=== PATIENT | female | born 1955 | race Caucasian/White ===

== ENCOUNTER → 2017-07-29 | Outpatient (CLI) | payer SELFPAY ==
[~2017-07-29] MED LIST: Roxicodone5 MG PO; Zofran Odt4 MG SL
== END | disposition home or self-care (01) ==
LOC: LAB 17:29
DX: L03.317 Cellulitis of buttock (principal)
CPT/HCPCS: 87070; 87077; 87147; 87186; 87205

== ENCOUNTER 2019-01-01 11:45 | Day surgery (SDC) | payer OTHER ==
[~2019-01-01] VITALS: Ht 160 cm; Wt 81.4 kg
[~2019-01-01 11:45] MED LIST changes: +METCAR500 PO; +METO50ER PO; +Prilosec Otc20 MG PO; +TRAM50 PO
== END 2019-01-01 14:00 | disposition home or self-care (01) ==
LOC: ORSCSDS 11:45
PROVIDERS: Internal Medicine Gastroenterology
PROC: 0DB58ZX Excision of Esophagus, Via Natural or Artificial Opening Endoscopic, Diagnostic (ICD-10-PCS; principal; 2019-01-01 13:00)
PROC: 0D747ZZ Dilation of Esophagogastric Junction, Via Natural or Artificial Opening (ICD-10-PCS; principal; 2019-01-01 13:00)
PROC: 0DB68ZX Excision of Stomach, Via Natural or Artificial Opening Endoscopic, Diagnostic (ICD-10-PCS; principal; 2019-01-01 13:00)
DX: R13.10 Dysphagia, unspecified (principal); K21.9 Gastro-esophageal reflux disease without esophagitis; K29.70 Gastritis, unspecified, without bleeding; I10 Essential (primary) hypertension; E66.9 Obesity, unspecified; Z68.32 Body mass index [BMI] 32.0-32.9, adult; Z79.899 Other long term (current) drug therapy
CPT/HCPCS: 88305; 88342; J2704; J7120

== ENCOUNTER → 2019-11-03 | Outpatient (CLI) | payer OTHER | END | disposition home or self-care (01) | LOC: LAB SHORT 19:05 → LAB EV 19:05 | DX: N39.0 Urinary tract infection, site not specified (principal) | CPT/HCPCS: 87077; 87086; 87147; 87186 ==

== ENCOUNTER → 2022-06-13 | Outpatient (CLI) | payer OTHER | END | disposition home or self-care (01) | LOC: LAB SHORT 15:17 | DX: R05.3 Chronic cough (principal) | CPT/HCPCS: 87070; 87205 ==

== ENCOUNTER 2023-11-29 06:37 | Inpatient (IN) | payer OTHER ==
[~2023-11-29] VITALS: Ht 160 cm; Wt 77.1 kg
[~2023-11-29 06:37] MED LIST changes: +METPRE4DP PO
[2023-11-29] MEDS ORDERED: ONDA4ODT MM (06:52)
[2023-11-29] MEDS ORDERED: HYDROmorphone HCl/Pf 1MG SYR IV ONE (07:45)
[2023-11-29] MEDS ORDERED: Ondansetron HCl 2 MG / ML 2ML Vial IV ONE (07:45)
[2023-11-29 08:06] LABS: EOSINOPHILS PERCENT AUTO 0 % (0-6); Hematocrit 39.7 % (33.0-51.0); Hemoglobin 13.1 g/dL (11.5-16.0); IMMATURE GRAN ABSOLUTE AUTO 1.18 K/mm3 (0.00-0.10); IMMATURE GRAN PERCENT AUTO 3 % (0-1); LYMPHOCYTES ABSOLUTE AUTO 1.19 K/mm3 (0.84-5.20); LYMPHOCYTES PERCENT AUTO 3 % (21-46); MONOCYTES ABSOLUTE AUTO 1.83 K/mm3 (0.16-1.47); MONOCYTES PERCENT AUTO 5 % (4-13); Mean Corpuscular HGB 28.4 pg (26.0-34.0); Mean Corpuscular Volume 86 fL (80-100); Mean Platelet Volume 10.2 fL (9.1-12.4); NEUTROPHILS ABSOLUTE AUTO 33.58 K/mm3 (1.96-9.15); NEUTROPHILS PERCENT AUTO 89 % (41-73); Platelet Count 373 K/mm3 (150-400); RDW Coefficient Variation 13.9 % (11.7-14.2); RDW Standard Deviation 44.3 fL (35.1-46.3); Red Blood Cell Count 4.61 M/mm3 (3.80-5.20); White Blood Cell Count 37.81 K/mm3 (4.00-11.30)
[2023-11-29 08:26] LABS: BASOPHILS ABSOLUTE AUTO 0.03 K/mm3 (0.00-0.23); BASOPHILS PERCENT AUTO 0 % (0-2)
[2023-11-29 08:27] LABS: Albumin/Globulin Ratio 0.3 (0.8-1.8); Bun/Creatinine Ratio 26.3 (12.0-20.0); Calcium, Blood 9.2 mg/dL (8.5-10.1); Creatinine, Blood 0.88 mg/dL (0.40-1.00); Globulin, Blood 5.9 g/dL (2.2-4.0); Potassium, Blood 3.8 mmol/L (3.5-5.5); Total Protein, Blood 7.9 g/dL (6.4-8.2)
[2023-11-29 08:42] LABS: Influenza A, PCR NEGATIVE (NEGATIVE); Influenza B, PCR NEGATIVE (NEGATIVE); Resp Syncytial Virus, PCR NEGATIVE (NEGATIVE); SARS-Cov-2 (COVID-19) PCR, MMC NEGATIVE (NEGATIVE)
[2023-11-29] MEDS ORDERED: CefTRIAXone Sodium 1,000 MG in NS 50 ML IV ONE (09:15)
[2023-11-29] MEDS ORDERED: Ondansetron HCl 2 MG / ML 2ML Vial IV PRN (10:00)
[2023-11-29] MEDS ORDERED: Lactated Ringer's 1,000 ML IV SCH (10:05)
[2023-11-29] MEDS ORDERED: HYDROmorphone HCl/Pf 1MG SYR IV PRN (10:05)
[2023-11-29] MEDS ORDERED: OxyCODONE HCL 5 MG TAB PO PRN (10:05)
[2023-11-29] MEDS ORDERED: Azithromycin 500 MG in NS 250 ML IV SCH (10:10)
[2023-11-29] MEDS ORDERED: FLUT.05NI (11:50)
[2023-11-29] MEDS ORDERED: Benzonatate 100 MG Cap PO PRN (14:25)
[2023-11-29] MEDS ORDERED: GuaiFENesin 600 MG TabCR PO SCH (14:25)
[2023-11-29 14:37] VITALS: BP 126/80
--- NOTE | 2023-11-29 16:34 | NUR ---
TRANSFER REPORT CALLED TO NILSA REYES AT [facility] AT THIS TIME, ACCEPTING PHYSICIAN IS . CHARGE NURSE ADAN MADE AWARE.
[2023-11-29 16:41] VITALS: BP 126/80
--- NOTE | 2023-11-29 18:46 | NUR ---
PATIENT IN ALOT OF PAIN, RIGHT SIDED PAIN R/T FLUID BUILD UP AND NEED FOR THORACENTESIS, DESPITE DILUDID OR OXYCODONE PAIN MEDICAITON INEFFECTIVE. BEING TRANSPORTED TO [facility] AT THIS TIEM TO GET PROCUDRE PERFORMED THERE. TRANSPORT CURRENTLY AT BEDSIDE AWAITING PACKET FROM EQUIPMENT SCHEDULER FOR TRANSPORT.
[2023-11-29] MEDS ORDERED: Lactobacil 2-S.Thermo-Bifido 1 1 Cap PO SCH (21:00)
[2023-11-29] MEDS ORDERED: Docusate Sodium/Senna 1 Tab PO SCH (21:00)
[2023-11-30] MEDS ORDERED: CefTRIAXone Sodium 1,000 MG in NS 100 ML IV SCH (09:00)
[2023-11-30] MEDS ORDERED: Cholecalciferol 1000 Unit Tablet (=25MCG) PO SCH (09:00)
== END 2023-11-29 19:45 | disposition short-term general hospital (02) | DRG 871 ==
LOC: ER 06:37 → MEDS 09:59
PROVIDERS: Emergency Medicine; ADMIT Internal Medicine
DX: A41.9 Sepsis, unspecified organism (principal); J18.9 Pneumonia, unspecified organism; J91.8 Pleural effusion in other conditions classified elsewhere; G89.29 Other chronic pain; J84.10 Pulmonary fibrosis, unspecified; M54.2 Cervicalgia; Z90.49 Acquired absence of other specified parts of digestive tract; Z98.890 Other specified postprocedural states; Z98.51 Tubal ligation status; Z88.0 Allergy status to penicillin; Z88.8 Allergy status to other drugs, medicaments and biological substances; Z79.899 Other long term (current) drug therapy
CPT/HCPCS: 0241U; 36415; 71046; 71260; 80053; 83605; 83690; 84484; 85025; 93005; 93010; 96374-59; 96375-59; 99285-25; A9270; J0456; J0696; J1170; J2405; J7050; J7120; Q9967

== ENCOUNTER 2023-12-16 10:55 | Emergency (ER) | payer OTHER ==
[~2023-12-16] VITALS: Ht 160 cm; Wt 77.1 kg
[~2023-12-16 10:55] MED LIST changes: +FLUT.05NI; +ONDA4ODT MM
[2023-12-16] MEDS ORDERED: NS 1,000 ML IV SCH (11:15)
[2023-12-16 11:57] LABS: BASOPHILS ABSOLUTE AUTO 0.12 K/mm3 (0.00-0.23); BASOPHILS PERCENT AUTO 1 % (0-2); EOSINOPHILS ABSOLUTE AUTO 0.18 K/mm3 (0.00-0.68); EOSINOPHILS PERCENT AUTO 1 % (0-6); Hematocrit 37.3 % (33.0-51.0); Hemoglobin 12.1 g/dL (11.5-16.0); IMMATURE GRAN ABSOLUTE AUTO 0.07 K/mm3 (0.00-0.10); IMMATURE GRAN PERCENT AUTO 1 % (0-1); LYMPHOCYTES ABSOLUTE AUTO 1.62 K/mm3 (0.84-5.20); LYMPHOCYTES PERCENT AUTO 13 % (21-46); MONOCYTES ABSOLUTE AUTO 0.98 K/mm3 (0.16-1.47); MONOCYTES PERCENT AUTO 8 % (4-13); Mean Corpuscular HGB 27.9 pg (26.0-34.0); Mean Corpuscular HGB Conc 32.4 g/dL (31.5-36.5); Mean Corpuscular Volume 86 fL (80-100); Mean Platelet Volume 9.2 fL (9.1-12.4); NEUTROPHILS ABSOLUTE AUTO 9.81 K/mm3 (1.96-9.15); NEUTROPHILS PERCENT AUTO 77 % (41-73); Platelet Count 552 K/mm3 (150-400); RDW Coefficient Variation 14.9 % (11.7-14.2); RDW Standard Deviation 46.5 fL (35.1-46.3); Red Blood Cell Count 4.34 M/mm3 (3.80-5.20); White Blood Cell Count 12.78 K/mm3 (4.00-11.30)
[2023-12-16 12:19] LABS: Albumin, Blood 2.1 g/dL (3.4-5.0); Albumin/Globulin Ratio 0.3 (0.8-1.8); Bilirubin, Total 0.4 mg/dL (0.1-1.0); Bun/Creatinine Ratio 17.4 (12.0-20.0); Calcium, Blood 8.4 mg/dL (8.5-10.1); Creatinine, Blood 0.63 mg/dL (0.40-1.00); Globulin, Blood 7.5 g/dL (2.2-4.0); Potassium, Blood 3.9 mmol/L (3.5-5.5); Total Protein, Blood 9.6 g/dL (6.4-8.2)
[2023-12-16 14:02] LABS: Source, Urine Clean Catch
[2023-12-16 14:05] LABS: Appearance, Urine Clear (Clear); Bilirubin, Urine Neg (Neg); Blood, Urine Neg (Neg); Color, Urine Yellow (P-Yellow); Glucose Qualitative, Urine Neg (Neg); Ketones, Urine Neg (Neg); Leukocyte Esterase, Urine Neg (Neg); Nitrite, Urine Neg (Neg); Protein, Urine Neg (Neg); Specific Gravity, Urine 1.005 (1.003-1.022); Urobilinogen, Urine NORM (Normal)
[2023-12-16] MEDS ORDERED: HYDROmorphone HCl/Pf 1MG SYR IV ONE (14:15)
[2023-12-16 16:00] VITALS: BP 142/82
== END 2023-12-16 18:51 | disposition home or self-care (01) ==
LOC: ER 10:55
PROVIDERS: Emergency Medicine
DX: R53.1 Weakness (principal); Z88.0 Allergy status to penicillin; Z88.8 Allergy status to other drugs, medicaments and biological substances; Z79.899 Other long term (current) drug therapy
CPT/HCPCS: 71045; 80053; 81003; 83880; 84484; 85025; 93005; 93010; 96360; 97110; 97116; 97162; 99285-25; J7030

== ENCOUNTER → 2023-12-25 | Outpatient (CLI) | payer OTHER ==
[2023-12-25 15:31] LABS: BASOPHILS PERCENT AUTO 1 % (0-2); EOSINOPHILS ABSOLUTE AUTO 0.16 K/mm3 (0.00-0.68); EOSINOPHILS PERCENT AUTO 2 % (0-6); Hemoglobin 12.2 g/dL (11.5-16.0); IMMATURE GRAN ABSOLUTE AUTO 0.07 K/mm3 (0.00-0.10); IMMATURE GRAN PERCENT AUTO 1 % (0-1); LYMPHOCYTES ABSOLUTE AUTO 2.08 K/mm3 (0.84-5.20); LYMPHOCYTES PERCENT AUTO 20 % (21-46); MONOCYTES ABSOLUTE AUTO 0.63 K/mm3 (0.16-1.47); MONOCYTES PERCENT AUTO 6 % (4-13); Mean Corpuscular HGB 27.7 pg (26.0-34.0); Mean Corpuscular HGB Conc 32.1 g/dL (31.5-36.5); Mean Corpuscular Volume 86 fL (80-100); Mean Platelet Volume 9.3 fL (9.1-12.4); NEUTROPHILS ABSOLUTE AUTO 7.27 K/mm3 (1.96-9.15); NEUTROPHILS PERCENT AUTO 70 % (41-73); Platelet Count 359 K/mm3 (150-400); RDW Coefficient Variation 14.6 % (11.7-14.2); RDW Standard Deviation 45.5 fL (35.1-46.3); Red Blood Cell Count 4.41 M/mm3 (3.80-5.20); White Blood Cell Count 10.31 K/mm3 (4.00-11.30)
[2023-12-25 15:44] LABS: Albumin, Blood 2.2 g/dL (3.4-5.0); Albumin/Globulin Ratio 0.3 (0.8-1.8); Bilirubin, Total 0.3 mg/dL (0.1-1.0); Bun/Creatinine Ratio 11.1 (12.0-20.0); Calcium, Blood 8.8 mg/dL (8.5-10.1); Creatinine, Blood 0.9 mg/dL (0.40-1.00); Globulin, Blood 6.9 g/dL (2.2-4.0); Potassium, Blood 3.8 mmol/L (3.5-5.5); Total Protein, Blood 9.1 g/dL (6.4-8.2)
== END ==
LOC: LAB 15:26 → LAB SHORT 15:26
PROVIDERS: Physician Assistant
DX: R53.1 Weakness (principal)
CPT/HCPCS: 80053; 85025

== ENCOUNTER 2024-04-22 15:31 | Observation (INO) | payer OTHER ==
[~2024-04-22] VITALS: Ht 160 cm; Wt 74.5 kg
[~2024-04-22 15:31] MED LIST changes: -FLUT.05NI; -ONDA4ODT MM
[2024-04-22 16:10] LABS: BASOPHILS ABSOLUTE AUTO 0.06 K/mm3 (0.00-0.23); BASOPHILS PERCENT AUTO 1 % (0-2); EOSINOPHILS PERCENT AUTO 5 % (0-6); Hematocrit 46.9 % (33.0-51.0); Hemoglobin 15.4 g/dL (11.5-16.0); IMMATURE GRAN ABSOLUTE AUTO 0.01 K/mm3 (0.00-0.10); IMMATURE GRAN PERCENT AUTO 0 % (0-1); LYMPHOCYTES ABSOLUTE AUTO 2.38 K/mm3 (0.84-5.20); LYMPHOCYTES PERCENT AUTO 31 % (21-46); MONOCYTES ABSOLUTE AUTO 0.53 K/mm3 (0.16-1.47); MONOCYTES PERCENT AUTO 7 % (4-13); Mean Corpuscular HGB 28.4 pg (26.0-34.0); Mean Corpuscular HGB Conc 32.8 g/dL (31.5-36.5); Mean Corpuscular Volume 86 fL (80-100); Mean Platelet Volume 9.7 fL (9.1-12.4); NEUTROPHILS ABSOLUTE AUTO 4.28 K/mm3 (1.96-9.15); NEUTROPHILS PERCENT AUTO 56 % (41-73); Platelet Count 310 K/mm3 (150-400); RDW Coefficient Variation 14.5 % (11.7-14.2); RDW Standard Deviation 46.1 fL (35.1-46.3); Red Blood Cell Count 5.43 M/mm3 (3.80-5.20); White Blood Cell Count 7.66 K/mm3 (4.00-11.30)
[2024-04-22 16:54] LABS: Albumin, Blood 3.4 g/dL (3.4-5.0); Albumin/Globulin Ratio 0.7 (0.8-1.8); Bilirubin, Total 0.2 mg/dL (0.1-1.0); Bun/Creatinine Ratio 19.4 (12.0-20.0); Calcium, Blood 9.3 mg/dL (8.5-10.1); Creatinine, Blood 1.08 mg/dL (0.40-1.00); Globulin, Blood 4.9 g/dL (2.2-4.0); Potassium, Blood 3.9 mmol/L (3.5-5.5); Total Protein, Blood 8.3 g/dL (6.4-8.2)
[2024-04-22] MEDS ORDERED: Aspirin 325 MG Tab PO ONE ×2 (18:40→19:00)
[2024-04-22] MEDS ORDERED: FLU VACC TS2024-25(6MOS UP)/PF 45 MCG/0.5 ML SYRINGE IM ONE (18:45)
[2024-04-22] MEDS ORDERED: TraMADol HCl 50 MG Tab PO PRN (19:10)
[2024-04-22] MEDS ORDERED: ALBU90OI INH (21:00)
[2024-04-22 21:49] VITALS: BP 158/86
[2024-04-23 03:41] VITALS: BP 142/93
--- NOTE | 2024-04-23 05:44 | NUR ---
NOC SHIFT SUMMARY PT ADMITTED FROM ER. ONLY NEUROLOGICAL SYMPTOM SHE HAS HAD SINCE COMING TO THE UNIT IS NUMBNESS TO HER LIPS AND THE L SIDE OF HER FACE. DID AN NIHSS ON ARRIVAL AND PT SCORED A 1. NO OTHER ISSUES.
[2024-04-23 06:19] LABS: CHOL/HDL RATIO 3.4; Cholesterol 179 mg/dL (50-200); HDL Cholesterol 52 mg/dL (>39); LDL/HDL RATIO 1.9; Low Density Lipoprotein Chol 101 mg/dL (0-110); Triglycerides 129 mg/dL (30-160); Very Low Density Lipoprot Chol 25 mg/dL (6-32)
[2024-04-23 08:04] VITALS: BP 147/89
[2024-04-23] MEDS ORDERED: Atorvastatin 40 MG Tab PO SCH (09:00)
[2024-04-23] MEDS ORDERED: Enoxaparin 40 MG/0.4 ML SYR SC SCH (09:00)
[2024-04-23] MEDS ORDERED: Aspirin 81 MG TabEC PO SCH (09:00)
--- NOTE | 2024-04-23 10:28 | NUR ---
AM NOTE ASSUMED CARE OF PATIENT AT APPROX. 0715. BEDSIDE REPORT DONE. PATIENT IS A&OX4. PATIENT IS IND IN ROOM. ECHO COMPLETED AT APPROX. 1000. PATIENT TAKEN FOR MRI RIGHT AFTER THAT. PATIENT REPORTED LEFT MOUTH/LIP NUMBNESS, PATIENT HAD NOT BEEN FEELING THIS NUMBNESS UNTIL SHE REPORTED IT TO THIS RN. DOCTOR NOTIIFED. PATIENT IS EATING DRINKING WELL. PATIENT DOES NOT REPORT ANY DIFFICULTY WITH EATING OR DRINKING. BILAT UPPER EXTREMITIES EQUAL IN STRENGTH. BILAT LOWER EXTREMTIIES SLIGHTLY WEAK, BUT EQUAL. PATIENT REPORTS WEAKNESS IS CHRONIC ISSUE.
[2024-04-23] MEDS ORDERED: FLUT.05NI (15:50)
[2024-04-23] MEDS ORDERED: ONDA4ODT MM (15:51)
[2024-04-23 15:59] VITALS: BP 162/91
[2024-04-23] MEDS ORDERED: NAPR220 PO (16:11)
[2024-04-23] MEDS ORDERED: Aspir 8181 MG PO (16:26)
[2024-04-23 16:41] VITALS: BP 168/104
[2024-04-23 16:48] VITALS: BP 172/100
--- NOTE | 2024-04-23 17:13 | NUR ---
DISCHARGE PATIENT TRANSPORTED VIA WHEELCHAIR TO PRIVATE VEHICLE. DISCHARGE EDUCATION EXPLAINED TO PATIENT. PATIENT STATED UNDERSTANDING. PACKET SENT WITH PATIENT. IV REMOVED BY HERLINDA JACKSON WITHOUT DIFFICULTY. TELE REMOVED WITHOUT DIFFICULTY. MEDICATIONS FAXED TO PREFERRED PHARMACY. FOLLOW UP APPT MADE BY LUZMARIA. BLOOD PRESSURES REPORTED TO DR. RANGEL. PER SHARIF SOLANO INSTRUCTED TO TAKE BP AT HOME, KEEP TRACK AND REPORT TO PCP. BELONGINGS SENT WITH PATIENT.
== END 2024-04-23 17:26 | disposition home or self-care (01) ==
LOC: ER 15:31 → MEDS 15:32 → ERHOLD 15:32 → MEDS 21:44 → ENPENDDIS 04-23 16:05 → MEDS 04-23 17:26
PROVIDERS: Emergency Medicine; Nurse Practitioner Acute Care; ADMIT Student in an Organized Health Care Education/Training Program
DX: G45.9 Transient cerebral ischemic attack, unspecified (principal); E78.5 Hyperlipidemia, unspecified; G89.4 Chronic pain syndrome; J84.9 Interstitial pulmonary disease, unspecified; Z88.6 Allergy status to analgesic agent; Z88.0 Allergy status to penicillin; Z88.8 Allergy status to other drugs, medicaments and biological substances; Z91.040 Latex allergy status
CPT/HCPCS: 36415; 70450; 70551; 71046; 80053; 80061; 83036; 85025; 93005; 93010; 93306; 93880; 99285-25; A9270; G0378